=== PATIENT | male | born 1970 | race Caucasian/White ===

== ENCOUNTER 2017-08-21 11:42 | Emergency (ER) | payer OTHER ==
[2017-08-21 12:01] VITALS: RESP 18; TEMP 97.1
[2017-08-21] MEDS ORDERED: predniSONE 50 MG TAB PO STA (12:21)
[2017-08-21] MEDS ORDERED: IBUPROFEN 800 MG TAB PO STA (12:22)
--- NOTE | 2017-08-21 12:26 | ED ---
General Adult HPI - General Chief complaint: Extremity Injury, Upper Stated complaint: neck,shoulder,arm & chest pain Time Seen by Provider: 08/21/17 12:08 Source: patient, RN notes reviewed Mode of arrival: ambulatory Limitations: no limitations - History of Present Illness Initial comments: This is a 47-year-old male who presents with complaints of left shoulder pain radiating down his left arm and into his hand.. He states that sharp in nature at rest is 8/10 when he moves which includes turning his head or moving his left arm it can be as bad as 10/10. This is been going on for several days. He does state that he has a prior history of a C6 7 herniated disc is not sure if this is related or not. He does do a lot of lifting but he has no recall any specific incident that causes particular pain. He denies any blurry vision and headache fevers chills nausea vomiting focal weakness is upper or lower extremities. He does have penicillin and Flexeril ALLERGIES. - Related Data Home Medications Medication Instructions Recorded Confirmed Albuterol Inhaler [Ventolin 1 - 2 puff INHALATION RT-Q4H PRN 01/08/14 08/21/17 Inhaler] Budesonide/Formoterol Fumarate 2 puff INHALATION RT-BID 01/08/14 08/21/17 [Symbicort 80-4.5 Mcg Inhaler] Aleve Liquid Gels Caps 2 cap PO Q12H PRN 08/21/17 08/21/17 Ibuprofen [Motrin Ib] 200 - 800 mg PO Q6H PRN 08/21/17 08/21/17 Previous Rx's Medication Instructions Recorded Hydrocodone/Acetaminophen [[place] 1 each PO Q6HR PRN #12 tab 08/21/17 5-325] Ibuprofen 800 mg PO Q6HR PRN #20 tablet 08/21/17 methylPREDNISolone Dose Pack 4 mg PO DIRECTED #21 package 08/21/17 [Medrol Dose Pack] Allergies Allergy/AdvReac Type Severity Reaction Status Date / Time cyclobenzaprine HCl Allergy Rash/Hives Verified 08/21/17 12:16 [From Flexeril] Penicillins AdvReac Nausea & Verified 08/21/17 12:16 Vomiting Review of Systems ROS Statement: Those systems with pertinent positive or pertinent negative responses have been documented in the HPI. ROS Other: All systems not noted in ROS Statement are negative. Past Medical History Past Medical History: COPD History of Any Multi-Drug Resistant Organisms: None Reported Past Surgical History: Hernia Repair Additional Past Surgical History / Comment(s): LEFT BIG TOE Past Psychological History: Anxiety, Depression Smoking Status: Current every day smoker Past Alcohol Use History: None Reported, Rare Past Drug Use History: None Reported, Marijuana General Exam - General Exam Comments Initial Comments: This is a well-developed well-nourished awake alert oriented 3 male Limitations: no limitations General appearance: alert, in no apparent distress Head exam: Present: atraumatic, normocephalic, normal inspection Eye exam: Present: normal appearance, PERRL, EOMI. Absent: scleral icterus, conjunctival injection, periorbital swelling ENT exam: Present: normal exam, mucous membranes moist Neck exam: Present: normal inspection, tenderness, full ROM, other (Tenderness to palpation over the C6 7 paraspinous muscles on the left tenderness over the trapezius musculature and some upper deltoid tenderness. No step-off no crepitation.). Absent: meningismus, lymphadenopathy Respiratory exam: Present: normal lung sounds bilaterally. Absent: respiratory distress, wheezes, rales, rhonchi, stridor Cardiovascular Exam: Present: regular rate, normal rhythm, normal heart sounds. Absent: systolic murmur, diastolic murmur, rubs, gallop, clicks GI/Abdominal exam: Present: soft, normal bowel sounds. Absent: distended, tenderness, guarding, rebound, rigid Extremities exam: Present: normal inspection, full ROM, tenderness (Tenderness over the upper deltoid no step-off or crepitation full range of motion no crepitation upon evaluation of the shoulder joint.), normal capillary refill. Absent: pedal edema, joint swelling, calf tenderness Back exam: Present: normal inspection Neurological exam: Present: alert, oriented X3, CN II-XII intact Psychiatric exam: Present: normal affect, normal mood Skin exam: Present: warm, dry, intact, normal color. Absent: rash Course Vital Signs 08/21/17 11:57 Temperature 97.1 F L Pulse Rate 76 Respiratory 18 Rate Blood Pressure 146/82 O2 Sat by Pulse 96 Oximetry EKG Findings - EKG Results: EKG: interpreted by LUIGI, sinus rhythm (Normal sinus rhythm rate 75. Interval 172 QRS duration 84 QT since QTC of 374/[address]-T wave changes.) Medical Decision Making - Medical Decision Making I did discuss findings with the patient he will be discharged on appropriate medication he is follow-up with his doctor and return when necessary - Radiology Data Radiology results: report reviewed (I did review the imaging and report or is evidence of degenerative change no lower cervical spine at C6 -7, chest x-rays are unremarkable for acute processes.), image reviewed Disposition Clinical Impression: Cervical radiculopathy at C6, Muscle spasm Disposition: HOME SELF-CARE Condition: Good Instructions: Neck Pain (ED), Cervical Radiculopathy (ED) Prescriptions: Hydrocodone/Acetaminophen [[place] 5-325] 1 each PO Q6HR PRN #12 tab PRN Reason: Pain Ibuprofen 800 mg PO Q6HR PRN #20 tablet PRN Reason: Pain methylPREDNISolone Dose Pack [Medrol Dose Pack] 4 mg PO DIRECTED #21 package Referrals: Pedro Almaraz DO [Primary Care Provider] - 1-2 days
--- NOTE | 2017-08-21 13:27 | XR ---
EXAMINATION TYPE: XR chest 2V DATE OF EXAM: 08/21/2017 COMPARISON: 10/04/2013 TECHNIQUE: PA and lateral views submitted. HISTORY: Cough FINDINGS: The lungs are clear and there is no pneumothorax, pleural effusion, or focal pneumonia. Mild hyperi nflation. Arthropathy of the right AC joint. IMPRESSION: 1. No acute process.
--- NOTE | 2017-08-21 13:36 | XR ---
EXAMINATION TYPE: XR cervical spine comp DATE OF EXAM: 08/21/2017 COMPARISON: 05/12/2011 HISTORY: Left shoulder pain TECHNIQUE: Four views are submitted. FINDINGS: The odontoid is intact. There are no compression deformities. The prevertebral soft tissue structur es are within normal limits. Hypertrophic and degenerative change of the spine at levels C3-C7 with most marked findings at C6-C7.. IMPRESSION: 1. Multilevel degenerative disc disease with most marked changes at C6-C7. Recommended MRI follow-up.
[2017-08-21 14:31] VITALS: BP 122/74; PULSE 67
== END 2017-08-21 14:30 | disposition home or self-care (01) ==
LOC: EC 11:42
DX: M50.123 Cervical disc disorder at C6-C7 level with radiculopathy (principal); M62.838 Other muscle spasm; R07.9 Chest pain, unspecified; J44.9 Chronic obstructive pulmonary disease, unspecified; F17.200 Nicotine dependence, unspecified, uncomplicated; Z79.51 Long term (current) use of inhaled steroids; Z88.8 Allergy status to other drugs, medicaments and biological substances; Z88.0 Allergy status to penicillin; X50.0XXA Overexertion from strenuous movement or load, initial encounter
CPT/HCPCS: 93005; 72050; 71046; 99283; J7512

== ENCOUNTER 2017-08-28 20:00 | Emergency (ER) | payer OTHER ==
[2017-08-28 20:20] VITALS: BP 189/100; PULSE 79; RESP 20; TEMP 98.9
[2017-08-28] MEDS ORDERED: KETOROLAC 60 MG/2 ML VIAL IM STA (21:12)
--- NOTE | 2017-08-28 21:17 | ED ---
General Adult HPI - General Chief complaint: Extremity Injury, Upper Stated complaint: revisit left arm numbness Time Seen by Provider: 08/28/17 20:56 Source: patient, RN notes reviewed, old records reviewed Mode of arrival: ambulatory Limitations: no limitations - History of Present Illness Initial comments: Patient 47-year-old male presenting to the emergency room today with a chief complaint of neck pain numbness tingling down to the left hand. Patient does admit that his had these symptoms over the last week. Was seen here the emergency room had x-rays and was told that he had some degenerative changes at C6. Patient states that he does have an appointment with his family doctor tomorrow. He was prescribed [place], ibuprofen, Medrol Dosepak little relief with these medications. He states the numbness tingling to the fingertips was different today. No injury or trauma. Patient denies any other complaints or symptoms. He does not that this pain is worse with movements. Consistent with pain that he's had over the last week. - Related Data Home Medications Medication Instructions Recorded Confirmed Albuterol Inhaler [Ventolin 1 - 2 puff INHALATION RT-Q4H PRN 01/08/14 08/28/17 Inhaler] Budesonide/Formoterol Fumarate 2 puff INHALATION RT-BID 01/08/14 08/28/17 [Symbicort 80-4.5 Mcg Inhaler] Aleve Liquid Gels Caps 2 cap PO Q12H PRN 08/21/17 08/28/17 Ibuprofen [Motrin Ib] 200 - 800 mg PO Q6H PRN 08/21/17 08/28/17 Previous Rx's Medication Instructions Recorded Hydrocodone/Acetaminophen [[place] 1 each PO Q6HR PRN #12 tab 08/21/17 5-325] Ibuprofen 800 mg PO Q6HR PRN #20 tablet 08/21/17 methylPREDNISolone Dose Pack 4 mg PO DIRECTED #21 package 08/21/17 [Medrol Dose Pack] Allergies Allergy/AdvReac Type Severity Reaction Status Date / Time cyclobenzaprine HCl Allergy Rash/Hives Verified 08/28/17 20:20 [From Flexeril] Penicillins AdvReac Nausea & Verified 08/28/17 20:20 Vomiting Review of Systems ROS Statement: Those systems with pertinent positive or pertinent negative responses have been documented in the HPI. ROS Other: All systems not noted in ROS Statement are negative. Past Medical History Past Medical History: COPD History of Any Multi-Drug Resistant Organisms: None Reported Past Surgical History: Hernia Repair Additional Past Surgical History / Comment(s): LEFT BIG TOE Past Psychological History: Anxiety, Depression Smoking Status: Current every day smoker Past Alcohol Use History: None Reported, Rare Past Drug Use History: None Reported, Marijuana General Exam - General Exam Comments Initial Comments: General: The patient is awake and alert, in no distress, and does not appear acutely ill. Eye: Pupils are equal, round and reactive to light, extra-ocular movements are intact. No nystagmus. There is normal conjunctiva bilaterally. No signs of icterus. Ears, nose, mouth and throat: There are moist mucous membranes and no oral lesions. Neck: The neck is supple, there is no tenderness or JVD. Musculoskeletal: Patient does have good range of motion of the cervical, thoracic and lumbar spine. Mild tenderness to the left side paravertebral of cervical spine. Strength 5/5. Sensation intact. Pulses equal bilaterally 2+. Neurological: A&O x 3. CN II-XII intact, There are no obvious motor or sensory deficits. Coordination appears grossly intact. Speech is normal. Skin: Skin is warm and dry and no rashes or lesions are noted. Psychiatric: Cooperative, appropriate mood & affect, normal judgment. Limitations: no limitations Course Vital Signs 08/28/17 20:16 Temperature 98.9 F Pulse Rate 79 Respiratory 20 Rate Blood Pressure 189/100 O2 Sat by Pulse 96 Oximetry Medical Decision Making - Medical Decision Making Patient's previous x-rays reviewed does show degenerative changes at C6-C7. Patient does have an appointment with his family doctor tomorrow. He did drive here to the emergency room. His blood pressures mildly elevated does not take anything. Patient does have pain. He will be seen his family physician tomorrow. He'll be given dose of dexamethasone and Toradol for the pain. Advised to follow-up tomorrow for further evaluation as patient may need MRI. Disposition Clinical Impression: Cervical radiculopathy at C6 Disposition: HOME SELF-CARE Condition: Good Instructions: Cervical Radiculopathy (ED) Additional Instructions: Please follow-up the your scheduled appointment tomorrow. Please return to emergency room for new concerns. Is patient prescribed a controlled substance at discharge?: No Referrals: Pedro Almaraz DO [Primary Care Provider] - 1-2 days Time of Disposition: 21:17
[2017-08-28] MEDS: DEXAMETHASONE SOD PHOSPHATE 10 MG/ML 1 ML VIAL IM STA ×2 (21:39→21:40)
== END 2017-08-28 22:04 | disposition home or self-care (01) ==
LOC: EC 20:00
DX: M47.22 Other spondylosis with radiculopathy, cervical region (principal); I10 Essential (primary) hypertension; J44.9 Chronic obstructive pulmonary disease, unspecified; F17.200 Nicotine dependence, unspecified, uncomplicated; Z79.51 Long term (current) use of inhaled steroids; Z88.0 Allergy status to penicillin; Z88.8 Allergy status to other drugs, medicaments and biological substances
CPT/HCPCS: 99283; 96372; J1100; J1885

== ENCOUNTER → 2017-09-14 | Outpatient (CLI) | payer OTHER ==
--- NOTE | 2017-09-17 13:27 | MR ---
EXAMINATION TYPE: MR cervical spine wo con DATE OF EXAM: 09/14/2017 COMPARISON: Radiographs of the cervical spine dated 490 HISTORY: Severe Neck and Left Shoulder pain TECHNIQUE: Multiplanar, multisequence images of the cervical spine were acquired. FINDINGS: The posterior fossa is grossly unremarkable. Bone marrow signal is within normal limits. Ve rtebral bodies maintain normal vertebral body height and alignment. Cervical cord signal is maintaine d throughout. C2-C3: There is small left paracentral disc osteophyte complex without significant spinal canal steno sis or neural foraminal narrowing. C3-C4: There is a right paracentral disc herniation superimposed upon a broad-based disc bulge with u ncovertebral hypertrophy creating mild right neural foraminal narrowing and mild spinal canal stenosi s as there is narrowing of the ventral subarachnoid space and impression upon the spinal cord without alteration in spinal cord signal. Neuroforamen is patent. C4-C5: There is a very small central disc osteophyte complex without spinal canal stenosis. Mild left uncovertebral hypertrophy and bilateral neural foraminal narrowing create mild left neural foraminal narrowing. Right neuroforamen is patent. C5-C6: There is a small left paracentral disc herniation creating impression upon the ventral thecal sac and narrowing the subarachnoid space. This results in mild spinal canal stenosis. No significant neural foraminal narrowing is seen. C6-C7: There is a moderate right foraminal disc herniation originating in the lateral recess extendin g into the right neural foramen creating moderate right neural foraminal narrowing in combination wit h uncovertebral projecting facet arthropathy. There is minimal left neural foraminal narrowing at thi s level and moderate spinal canal stenosis as a disc herniation impresses upon the cervical cord. C7-T1: There is a left foraminal disc herniation again originating in the lateral recess and extendin g into the neural foramen. This examination with uncovertebral hypertrophy and facet arthropathy crea belle moderate to severe left neural foraminal narrowing. There is mild spinal canal stenosis in the le ft lateral portion of the spinal canal. Right neuroforamen is patent. IMPRESSION: 1. Moderate right foraminal disc herniation at C6-C7 creating moderate right neural foraminal narrowi ng, normal left neural foraminal narrowing, and moderate spinal canal stenosis. 2. Left foraminal disc herniation at C7-T1 in combination with degenerative changes create moderate t o severe left neural foraminal narrowing and mild spinal canal stenosis. 3. Small left paracentral disc herniation at C5-C6 creating mild spinal canal stenosis. 4. Right paracentral disc herniation at C3-C4 creating mild right neural foraminal narrowing and mild spinal canal stenosis.
== END | disposition home or self-care (01) ==
LOC: RADMRIMAIN 16:40
PROVIDERS: ATTEND Family Medicine
DX: M48.02 Spinal stenosis, cervical region (principal); M99.71 Connective tissue and disc stenosis of intervertebral foramina of cervical region; M50.11 Cervical disc disorder with radiculopathy, high cervical region; M47.22 Other spondylosis with radiculopathy, cervical region; Z88.0 Allergy status to penicillin
CPT/HCPCS: 72141

== ENCOUNTER 2017-10-28 11:21 | Emergency (ER) | payer OTHER ==
--- NOTE | 2017-10-28 11:51 | ED ---
General Adult HPI - General Chief complaint: Neck Pain/Injury Stated complaint: BACK AND NECK PAIN Time Seen by Provider: 10/28/17 11:35 Source: patient, RN notes reviewed Mode of arrival: ambulatory Limitations: no limitations - History of Present Illness Initial comments: Patient with 47-year-old male presented to the emergency room today with a chief complaint of neck pain. Patient does admit that over the last week she's been having increased neck pain is been following up. He's been trying to take some medications that were prescribed. He states that pain management advised to come to emergency room if he is having increased pain. Patient does admit that he does have pain that radiates down the left arm. He states is not new. Denies any new injury or trauma. Patient denies any other complaints. Patient denies any recent fever, chills, shortness of breath, chest pain, back pain, abdominal pain, nausea or vomiting, dysuria or hematuria, constipation or diarrhea, headaches or visual changes, or any other complaints. - Related Data Home Medications Medication Instructions Recorded Confirmed Albuterol Inhaler [Ventolin 1 - 2 puff INHALATION RT-Q4H PRN 01/08/14 10/28/17 Inhaler] Budesonide/Formoterol Fumarate 2 puff INHALATION RT-BID 01/08/14 10/28/17 [Symbicort 80-4.5 Mcg Inhaler] Gabapentin [Neurontin] 300 mg PO TID 10/28/17 10/28/17 Magnesium Oxide [Mag-Ox] 400 mg PO DAILY 10/28/17 10/28/17 Nortriptyline [Pamelor] 25 mg PO HS 10/28/17 10/28/17 tiZANidine [Zanaflex] 4 mg PO Q8HR 10/28/17 10/28/17 Previous Rx's Medication Instructions Recorded Baclofen 10 mg PO TID #20 tab 10/28/17 Dexamethasone 0.75 mg PO DIRECTED #12 tablet 10/28/17 Ibuprofen [Motrin] 800 mg PO Q6HR #30 tab 10/28/17 Allergies Allergy/AdvReac Type Severity Reaction Status Date / Time cyclobenzaprine HCl Allergy Rash/Hives Verified 10/28/17 11:24 [From Flexeril] Penicillins AdvReac Nausea & Verified 10/28/17 11:24 Vomiting Review of Systems ROS Statement: Those systems with pertinent positive or pertinent negative responses have been documented in the HPI. ROS Other: All systems not noted in ROS Statement are negative. Past Medical History Past Medical History: COPD Additional Past Medical History / Comment(s): neck pain History of Any Multi-Drug Resistant Organisms: None Reported Past Surgical History: Hernia Repair Additional Past Surgical History / Comment(s): LEFT BIG TOE Past Psychological History: Anxiety, Depression Smoking Status: Current every day smoker Past Alcohol Use History: None Reported, Rare Past Drug Use History: None Reported, Marijuana General Exam - General Exam Comments Initial Comments: General: The patient is awake and alert, in no distress, and does not appear acutely ill. Eye: Pupils are equal, round and reactive to light, extra-ocular movements are intact. No nystagmus. There is normal conjunctiva bilaterally. No signs of icterus. Ears, nose, mouth and throat: There are moist mucous membranes and no oral lesions. Neck: The neck is supple, there is no tenderness or JVD. Musculoskeletal: Normal ROM, no tenderness. Strength 5/5. Sensation intact. Pulses equal bilaterally 2+. Neurological: A&O x 3. CN II-XII intact, There are no obvious motor or sensory deficits. Coordination appears grossly intact. Speech is normal. Skin: Skin is warm and dry and no rashes or lesions are noted. Psychiatric: Cooperative, appropriate mood & affect, normal judgment. Limitations: no limitations Course Vital Signs 10/28/17 11:28 Temperature 97.8 F Pulse Rate 87 Respiratory 20 Rate Blood Pressure 157/94 O2 Sat by Pulse 98 Oximetry Medical Decision Making - Medical Decision Making 47-year-old male presenting for neck pain. Denies any injury or trauma. States the same pain that he's been experiencing some radiation going to the left arm. Denies anything new. Patient be given a prescription for baclofen, dexamethasone, ibuprofen. He is advised follow-up with pain management or family physician. Disposition Clinical Impression: Cervical radiculopathy Disposition: HOME SELF-CARE Condition: Good Instructions: Cervical Strain (ED) Additional Instructions: Please use medication as discussed. Please follow-up with family doctor in the next 2 days of symptoms have not improved. Please return to emergency room if the symptoms increase or worsen or for any other concerns. Prescriptions: Baclofen 10 mg PO TID #20 tab Dexamethasone 0.75 mg PO DIRECTED #12 tablet Ibuprofen [Motrin] 800 mg PO Q6HR #30 tab Is patient prescribed a controlled substance at d/c from ED?: No Referrals: Pedro Almaraz DO [Primary Care Provider] - 1-2 days Time of Disposition: 11:50
[2017-10-28 12:20] VITALS: BP 162/99; PULSE 82; RESP 18; TEMP 98.2
== END 2017-10-28 12:20 | disposition home or self-care (01) ==
LOC: EC 11:21
DX: M54.12 Radiculopathy, cervical region (principal); J44.9 Chronic obstructive pulmonary disease, unspecified; F32.9 Major depressive disorder, single episode, unspecified; F41.9 Anxiety disorder, unspecified; F17.200 Nicotine dependence, unspecified, uncomplicated; Z79.51 Long term (current) use of inhaled steroids; Z79.899 Other long term (current) drug therapy; Z88.0 Allergy status to penicillin; Z88.8 Allergy status to other drugs, medicaments and biological substances
CPT/HCPCS: 99283

== ENCOUNTER 2018-07-24 13:06 | Emergency (ER) | payer OTHER ==
[2018-07-24 13:16] VITALS: BP 152/84; PULSE 80; RESP 18; TEMP 97.9
--- NOTE | 2018-07-24 13:58 | ED ---
General Adult HPI - General Chief complaint: ENT Stated complaint: Ear pain Time Seen by Provider: 07/24/18 13:38 Source: patient, RN notes reviewed Mode of arrival: ambulatory Limitations: no limitations - History of Present Illness Initial comments: 48-year-old male presents emergency Department with chief complaint of right ear pain and drainage. Patient states started last 3-4 days. Patient states that he believes he may have scratched his ear. Patient also admits that he's had ongoing sinus congestion cough. Patient denies any chest pain or shortness breath no fever no chills no headache. Patient has tried smoker, medication relief. Patient denies any prior urinary infections of this nature. Denies any pain around his ear. - Related Data Home Medications Medication Instructions Recorded Confirmed Albuterol Inhaler [Ventolin 1 - 2 puff INHALATION RT-Q4H PRN 01/08/14 10/28/17 Inhaler] Budesonide/Formoterol Fumarate 2 puff INHALATION RT-BID 01/08/14 10/28/17 [Symbicort 80-4.5 Mcg Inhaler] Gabapentin [Neurontin] 300 mg PO TID 10/28/17 10/28/17 Magnesium Oxide [Mag-Ox] 400 mg PO DAILY 10/28/17 10/28/17 Nortriptyline [Pamelor] 25 mg PO HS 10/28/17 10/28/17 tiZANidine [Zanaflex] 4 mg PO Q8HR 10/28/17 10/28/17 Previous Rx's Medication Instructions Recorded Baclofen 10 mg PO TID #20 tab 10/28/17 Dexamethasone 0.75 mg PO DIRECTED #12 tablet 10/28/17 Ibuprofen [Motrin] 800 mg PO Q6HR #30 tab 10/28/17 Azithromycin [Zithromax Z-pack] 0 mg PO DIRECTED #1 pack 07/24/18 Ofloxacin 0.3% Otic Soln [Floxin 10 drops BOTH EARS BID #10 ml 07/24/18 0.3% Otic Soln] Allergies Allergy/AdvReac Type Severity Reaction Status Date / Time cyclobenzaprine HCl Allergy Rash/Hives Verified 07/24/18 13:16 [From Flexeril] Penicillins AdvReac Nausea & Verified 07/24/18 13:16 Vomiting Review of Systems ROS Statement: Those systems with pertinent positive or pertinent negative responses have been documented in the HPI. ROS Other: All systems not noted in ROS Statement are negative. Past Medical History Past Medical History: COPD Additional Past Medical History / Comment(s): neck pain History of Any Multi-Drug Resistant Organisms: None Reported Past Surgical History: Hernia Repair Additional Past Surgical History / Comment(s): LEFT BIG TOE, injections in neck Past Psychological History: Anxiety, Depression Smoking Status: Current every day smoker Past Alcohol Use History: Rare Past Drug Use History: Marijuana General Exam Limitations: no limitations General appearance: alert, in no apparent distress Head exam: Present: atraumatic, normocephalic, normal inspection Eye exam: Present: normal appearance, PERRL, EOMI. Absent: scleral icterus, conjunctival injection, periorbital swelling ENT exam: Present: mucous membranes moist. Absent: normal oropharynx, TM's normal bilaterally (Mild erythema in the right), normal external ear exam (Purulent drainage from the right ear canal) Neck exam: Present: normal inspection, full ROM. Absent: tenderness, meningismus, lymphadenopathy Respiratory exam: Present: normal lung sounds bilaterally. Absent: respiratory distress, wheezes, rales, rhonchi, stridor Cardiovascular Exam: Present: regular rate, normal rhythm, normal heart sounds. Absent: systolic murmur, diastolic murmur, rubs, gallop, clicks Course Vital Signs 07/24/18 13:14 Temperature 97.9 F Pulse Rate 80 Respiratory 18 Rate Blood Pressure 152/84 O2 Sat by Pulse 96 Oximetry Medical Decision Making - Medical Decision Making 48-year-old male presented for ear problems. Patient has otitis externa with mild otitis media. He does have underlying sinus congestion. Patient we started antibiotics, eardrops. Return parameters were discussed. Disposition Clinical Impression: Otitis media, Otitis externa, Sinus congestion Disposition: HOME SELF-CARE Condition: Stable Instructions (If sedation given, give patient instructions): Otitis Externa (ED) Additional Instructions: Please return to the Emergency Department if symptoms worsen or any other concerns. Prescriptions: Ofloxacin 0.3% Otic Soln [Floxin 0.3% Otic Soln] 10 drops BOTH EARS BID #10 ml Azithromycin [Zithromax Z-pack] 0 mg PO DIRECTED #1 pack Is patient prescribed a controlled substance at d/c from ED?: No Referrals: Pedro Almaraz DO [Primary Care Provider] - 1-2 days Time of Disposition: 13:58
== END 2018-07-24 14:09 | disposition home or self-care (01) ==
LOC: EC 13:06
DX: H66.91 Otitis media, unspecified, right ear (principal); H60.91 Unspecified otitis externa, right ear; R09.81 Nasal congestion; J44.9 Chronic obstructive pulmonary disease, unspecified; F32.9 Major depressive disorder, single episode, unspecified; F17.200 Nicotine dependence, unspecified, uncomplicated; Z79.51 Long term (current) use of inhaled steroids; Z79.899 Other long term (current) drug therapy; Z88.0 Allergy status to penicillin; Z88.8 Allergy status to other drugs, medicaments and biological substances
CPT/HCPCS: 99282

== ENCOUNTER → 2019-07-19 | Outpatient (CLI) | payer OTHER ==
[2019-07-19 16:17] LABS: Basophils # (A) 0.1 k/uL (0-0.2); Basophils % (A) 1 %; Eosinophils # (A) 0.1 k/uL (0-0.7); Eosinophils % (A) 1 %; HCT 49.1 % (39.0-53.0); HGB 16.1 gm/dL (13.0-17.5); Lymphocytes % (A) 17 %; MCH 30.7 pg (25.0-35.0); MCHC 32.8 g/dL (31.0-37.0); MCV 93.6 fL (80.0-100.0); Mean Platelet Volume 7.5; Monocytes # (A) 0.3 k/uL (0-1.0); Monocytes % (A) 2 %; Neutrophils % (A) 78 %; Platelet Count 297 k/uL (150-450); RBC 5.25 m/uL (4.30-5.90); RDW 12.2 % (11.5-15.5); WBC 11.6 k/uL (3.8-10.6)
[2019-07-20 00:36] LABS: African American GFR (CKD) 103.4 (60.0-200.0); Albumin 4.7 g/dL (3.80-4.90); Albumin/Globulin Ratio 2.04 (1.60-3.17); Anion Gap 10.1 mmol/L (4.00-12.00); Calcium 9.8 mg/dL (8.7-10.3); Carbon Dioxide 22.9 mmol/L (21.6-31.8); Chol/HDL Ratio 4.57; Globulin 2.3 g/dL (1.6-3.3); LDL Cholesterol,Calculated 137.6 mg/dL (0.0-131.0); Non-African American GFR(CKD) 89.2 (60.0-200.0); Potassium 4.6 mmol/L (3.5-5.5); Total Bilirubin 0.5 mg/dL (0.3-1.2); VLDL Calculation 19.4 mg/dL (5.00-40.00)
== END | disposition home or self-care (01) ==
LOC: LABWHC1 15:27
PROVIDERS: ATTEND Nurse Practitioner Acute Care
DX: E55.9 Vitamin D deficiency, unspecified (principal); E78.2 Mixed hyperlipidemia; R53.83 Other fatigue
CPT/HCPCS: 36415; 80053; 80061; 82306; 82607; 83090; 84207; 85025